=== PATIENT | male | born 1995 | race Caucasian/White ===

== ENCOUNTER 2018-02-02 04:03 | Emergency (ER) | payer BC ==
[~2018-02-02] VITALS: Ht 167.6 cm; Wt 86.2 kg
[2018-02-02 04:03] VITALS: BP 109/48
--- NOTE | 2018-02-02 04:03 | NUR ---
NARCAN 0.8 IVP; L AC
[2018-02-02] MEDS ORDERED: NACL 0.9% 1,000 ML IV ONE (04:15)
[2018-02-02] MEDS ORDERED: NALOXONE 0.4 MG/ML VIAL IVP ONE (04:20)
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
--- NOTE | 2018-02-02 04:34 | NUR ---
PT IS AAOX4, PT IS TALKING, CALM. STATES TO FEEL RINGING IN HIS EARS. RN AT BEDSIDE. WILL CONTINUE TO MONITOR.
--- NOTE | 2018-02-02 04:45 | NUR ---
FRIEND AT BEDSIDE.
[2018-02-02 04:47] LABS: BARBITURATE, URINE NEG. ng/ml (NEG <=200); BENZODIAZEPINE, URINE POS. ng/mL (NEG <=200); CANNABINOID, URINE NEG. ng/mL (NEG <=50); COCAINE, URINE NEG. ng/mL (NEG <=300); OPIATE, URINE NEG. ng/mL (NEG <=2000); PHENCYCLIDINE SCREEN,URINE NEG. ng/mL (NEG <=25)
--- NOTE | 2018-02-02 05:06 | NUR ---
CALL TO POISON CONTROL SPOKE W/ JALYN. SBAR PROVIDED. -RECOMMENDATIONS; TYLENOL AND ASPIRIN LEVELS, EKG, MONITOR FOR 4-6 HOURS FROM LAST NARCAN DOSE, OBSERVE FOR 4-6 HRS. -DR. DEAN MADE AWARE OF RECOMMENDATIONS. WILL CONTINUE TO MONITOR.
--- NOTE | 2018-02-02 05:32 | NUR ---
EKG PERFORMED AT BEDSIDE WITH PT FRIEND PRESENT. PT COVERED IN GOWN AND BLANKET DURING PROCEDURE.
--- NOTE | 2018-02-02 05:40 | NUR ---
LABS DRAWN BY RN AND WALKED DOWN TO LAB BY RN.
[2018-02-02 06:24] LABS: ALBUMIN 4.2 g/dL (3.4-5.0); ANION GAP 14.1 (8-16); ASPARTATE AMINOTRANSFERASE 56 U/L (15-37); CARBON DIOXIDE 29.9 mmol/L (21-32); CHLORIDE 106 mmol/L (98-107); CREATININE 1.1 mg/dL (0.7-1.3); GFR ARICAN-AMERICAN 107 mL/min (>90); GLUCOSE 97 mg/dL (74-106); SODIUM SERUM 146 mmol/L (136-145); TOTAL BILIRUBIN 0.2 mg/dL (0.0-1.0); UREA NITROGEN, BLOOD 10 mg/dL (7-18)
[2018-02-02 06:25] LABS: SALICYLATE < 2.8 mg/dL (2.8-20.0)
[2018-02-02 06:26] LABS: ACETAMINOPHEN < 0.5 ug/ml (10-30)
[2018-02-02 06:44] VITALS: BP 138/75
--- NOTE | 2018-02-02 06:44 | NUR ---
Patient discharged with v/s stable. Written and verbal after care instructions given and explained. Patient verbalized understanding. Ambulatory with steady gait. All questions addressed prior to discharge. Advised to follow up with PMD.
== END 2018-02-02 06:45 | disposition home or self-care (01) ==
LOC: MED 04:03
DX: T40.601A Poisoning by unspecified narcotics, accidental (unintentional), initial encounter (principal); R40.20 Unspecified coma; Y92.89 Other specified places as the place of occurrence of the external cause
CPT/HCPCS: 36415; 80053; 80305; 81002; 93005; 96374; 99284; G0480; G0482; J7030

== ENCOUNTER 2018-02-11 09:52 | Emergency (ER) | payer BC ==
[~2018-02-11] VITALS: Ht 175.3 cm; Wt 74.8 kg
--- NOTE | 2018-02-11 09:53 | NUR ---
PT TO BED 10 VIA WHEELCHAIR
[2018-02-11 09:55] VITALS: BP 127/68
--- NOTE | 2018-02-11 10:06 | NUR ---
PATIENT PRESENTS TO ED WITH brought in by family-- witnessed seizure, tonic clonic unprovoked by injury no trauma associated with seizure acitivity . DENIES N/V/D; SKIN IS PINK/WARM/DRY; AAOX4 WITH EVEN AND STEADY GAIT; LUNGS CLEAR BL; HR EVEN AND REGULAR; PT DENIES ANY FEVER, CP, SOB, OR COUGH AT THIS TIME; PATIENT STATES PAIN OF 0/10 AT THIS TIME; VSS; PATIENT POSITIONED FOR COMFORT; HOB ELEVATED; BEDRAILS UP X2; BED DOWN. ER MD MADE AWARE OF PT STATUS.
[2018-02-11] MEDS ORDERED: NACL 0.9% 1,000 ML IV ONE (10:10)
--- NOTE | 2018-02-11 10:15 | NUR ---
PT TAKEN TO CT VIA [facility]
[2018-02-11 10:45] LABS: BASOPHILS % (AUTO) 0.8 % (0.0-2.0); EOSINOPHILS # (AUTO) 0.1 K/uL (0-0.4); EOSINOPHILS % (AUTO) 2.1 % (0.0-4.0); HEMATOCRIT 45.9 % (36-52); HEMOGLOBIN 15.1 g/dL (12.0-18.0); LYMPHOCYTES # (AUTO) 0.8 K/uL (2.0-11.5); MEAN CORPUSCULAR HEMOGLOBIN 28 pg (27-31); MEAN CORPUSCULAR HGB CONC 33 g/dL (33-37); MEAN CORPUSCULAR VOLUME 86.4 fL (80-94); MONOCYTES # (AUTO) 0.3 K/uL (0.8-1.0); MONOCYTES % (AUTO) 6.5 % (1.7-9.3); NEUTROPHILS # (AUTO) 3.8 K/uL (1.8-7.7); NEUTROPHILS % (AUTO) 74.6 % (42.2-75.2); PLATELET COUNT (AUTO) 286 K/uL (140-450); RED BLOOD CELL COUNT(AUTO) 5.32 MIL/uL (4.20-6.10); RED CELL DISTRIBUTION WIDTH 14.2 % (11.6-13.7); WHITE BLOOD COUNT (AUTO) 5.1 K/uL (4.8-10.8)
[2018-02-11 10:51] LABS: ANION GAP 12.8 (8-16); CREATININE 1.1 mg/dL (0.7-1.3); POTASSIUM 3.8 mmol/L (3.5-5.1)
[2018-02-11 10:57] LABS: ALBUMIN 4.3 g/dL (3.4-5.0); TOTAL BILIRUBIN 0.2 mg/dL (0.0-1.0)
--- NOTE | 2018-02-11 11:33 | NUR ---
Patient discharged with v/s stable. Written and verbal after care instructions given and explained. Patient verbalized understanding. Ambulatory with steady gait. All questions addressed prior to discharge. Advised to follow up with PMD. pt's family picked up pt----lab and ct results handed to pt along with clinic information for f/u handed to pt. no seizure activity noted during stay in our er---
[2018-02-11 11:34] VITALS: BP 138/88
== END 2018-02-11 11:33 | disposition home or self-care (01) ==
LOC: MED 09:52
DX: R55 Syncope and collapse (principal); F15.90 Other stimulant use, unspecified, uncomplicated
CPT/HCPCS: 36415; 70450; 80053; 85025; 96360; 99284; J7030